=== PATIENT | male | born 1980 | race Two or more races ===

== ENCOUNTER 2025-01-11 12:28 | Emergency (ER) | payer OTHER ==
[~2025-01-11] VITALS: Ht 167.6 cm; Wt 81.6 kg
[2025-01-11] MEDS ORDERED: HUMALOG100 UNIT/2 SQ (12:39)
[2025-01-11] MEDS ORDERED: LANTUS SOL100 UNIT/1 SQ (12:39)
[2025-01-11] MEDS ORDERED: PANTOPRAZOLE SODIUM 40 MG/VIAL VIAL IV ONE (13:30)
[2025-01-11] MEDS ORDERED: SODIUM CHLORIDE 0.45 % 500 ML IV ONE (13:30)
[2025-01-11 14:05] LABS: BASO % 0.7 % (0.1-1.2); EOS # 0.01 (0.04-0.54); EOS % 0.1 % (0.7-7.0); HEMATOCRIT 44.5 % (40.1-51.0); LYMPH # 1.89 (1.18-3.74); LYMPH % 25.1 % (19.3-53.1); MONO # 0.57 (0.24-0.82); MONO % 7.6 % (4.7-12.5); NEUT # 4.99 (1.56-6.13); NEUT % 66.1 % (34.0-71.1); PLATELET COUNT 178 K/uL (163-369); RED BLOOD COUNT 5.76 M/uL (4.63-6.08)
[2025-01-11 14:34] LABS: ALBUMIN 3.6 gm/dL (3.4-5.0); BILIRUBIN TOTAL 0.7 mg/dL (0.3-1.2); CALCIUM 9.2 mg/dL (8.5-10.1); CREATININE SERUM 1.31 mg/dL (0.70-1.30); GFR 59.72; GLOBULINA 4.3 G/DL (2.4-3.5); POTASSIUM 4.34 mEq/L (3.5-5.1); TOTAL PROTEIN 7.9 gm/dL (6.4-8.2)
[2025-01-11 15:34] LABS: PH,URINE 5.5 (5.0-8.0); URINE APPEARANCE Clear; URINE BILIRRUBIN Negative (NEGATIVE); URINE COLOR Yellow; URINE LEUKOCYTE Negative; URINE NITRATE Negative; URINE PROTEIN 30 (NEGATIVE); URINE UROBILINOGEN 0.2 E.U./dl
[2025-01-11 15:38] LABS: URINE WBC 6.8 uL (0.0-23.2)
[2025-01-11 15:43] LABS: URINE BLOOD TRACE; URINE CAST 0.29 uL (0.0-1.40); URINE EPITHELIAL CELLS 1.2 uL (0.0-38.8); URINE GLUCOSE >=1000 MG/DL (NEGATIVE); URINE KETONE >=160 (NEGATIVE)
== END 2025-01-11 16:56 | disposition home or self-care (01) ==
LOC: ER 12:28
PROVIDERS: General Practice
DX: K29.70 Gastritis, unspecified, without bleeding (principal); E86.0 Dehydration; E11.9 Type 2 diabetes mellitus without complications; Z79.4 Long term (current) use of insulin

== ENCOUNTER 2025-01-12 19:15 | Emergency (ER) | payer OTHER ==
[~2025-01-12] VITALS: Ht 170.2 cm; Wt 72.6 kg
[~2025-01-12 19:15] MED LIST: HUMALOG100 UNIT/2 SQ; LANTUS SOL100 UNIT/1 SQ
[2025-01-12] MEDS ORDERED: PANTOPRAZOLE SODIUM 40 MG/VIAL VIAL IV ONE (20:15)
[2025-01-12] MEDS ORDERED: PIPERACILLIN/TAZOBACTAM SODIUM 3.375 GM VIAL IV ONE ×2 (20:15→21:19)
[2025-01-12] MEDS ORDERED: 0.9 % SODIUM CHLORIDE 1,000 ML IV ONE (20:15)
[2025-01-12] MEDS ORDERED: ONDANSETRON HCL 2 MG/ML VIAL IV ONE (20:15)
[2025-01-12] MEDS ORDERED: KETOROLAC TROMETHAMINE 30 MG VIAL IV ONE (20:15)
[2025-01-12] MEDS ORDERED: KETOROLAC TROMETHAMINE 30 MG VIAL ONE (21:18)
[2025-01-12] MEDS ORDERED: ONDANSETRON HCL 2 MG/ML VIAL ONE (21:18)
[2025-01-12] MEDS ORDERED: FAMOTIDINE/PF 20 MG/2 ML VIAL ONE (21:19)
[2025-01-12 22:01] LABS: BASO % 0.8 % (0.1-1.2); EOS # 0.06 (0.04-0.54); EOS % 1.1 % (0.7-7.0); HEMATOCRIT 46.2 % (40.1-51.0); HEMOGLOBIN 15.8 g/dL (13.7-17.5); LYMPH # 2.11 (1.18-3.74); LYMPH % 40.3 % (19.3-53.1); MEAN CORPUSCULAR HEMOGLOBIN 26.4 pg (25.6-32.2); MONO # 0.43 (0.24-0.82); MONO % 8.2 % (4.7-12.5); NEUT # 2.56 (1.56-6.13); PLATELET COUNT 178 K/uL (163-369); RED BLOOD COUNT 5.99 M/uL (4.63-6.08); RED CELL DISTRIBUTION WIDTH 13.6 % (11.6-14.4)
[2025-01-12 22:17] LABS: INR 1.02; PARTIAL THROMBOPLASTIN TIME 23.9 SECONDS (22.0-34.0); PROTHROMBIN TIME 11.1 SECONDS (9.0-11.5)
[2025-01-12 22:43] LABS: ALBUMIN 3.5 gm/dL (3.4-5.0); BILIRUBIN TOTAL 0.99 mg/dL (0.3-1.2); BILIRUBIN,CONJUGATED 0.2 mg/dL (0.0-0.2); BILIRUBIN,UNCONJUGATED 0.79 mg/dL (0.0-0.6); CREATININE SERUM 1.23 mg/dL (0.70-1.30); GFR 64.22; GLOBULINA 4.5 G/DL (2.4-3.5); POTASSIUM 3.79 mEq/L (3.5-5.1)
[2025-01-12 23:53] LABS: COVID-19 AG NEGATIVE (NEGATIVE)
[2025-01-13 01:32] LABS: URINE APPEARANCE Clear; URINE BILIRRUBIN Negative (NEGATIVE); URINE BLOOD Negative; URINE COLOR Yellow; URINE LEUKOCYTE Negative; URINE NITRATE Negative
[2025-01-13 01:37] LABS: URINE BACTERIA 6.1 uL (0.0-1933); URINE RBC 12.9 uL (0.0-20.8)
[2025-01-13 01:49] LABS: INFLUENZA A AG NEGATIVE (NEGATIVE)
[2025-01-13 01:50] LABS: URINE CAST 0.44 uL (0.0-1.40); URINE GLUCOSE >=1000 MG/DL (NEGATIVE); URINE KETONE >=160 (NEGATIVE); URINE PROTEIN 100 (NEGATIVE)
[2025-01-13] MEDS ORDERED: PEPCID40 MG PO (04:10)
[2025-01-13] MEDS ORDERED: PROTONIX40 MG PO (04:10)
[2025-01-13] MEDS ORDERED: ZOFRAN8 MG PO (04:10)
== END 2025-01-13 04:15 ==
LOC: ER 19:57
PROVIDERS: General Practice
DX: R10.13 Epigastric pain (principal); K29.70 Gastritis, unspecified, without bleeding; E86.0 Dehydration; Z20.822 Contact with and (suspected) exposure to COVID-19; E11.9 Type 2 diabetes mellitus without complications; Z79.4 Long term (current) use of insulin
CPT/HCPCS: 36415; 74177; 93005; Q9965